=== PATIENT | female | born 1985 | race Caucasian/White ===

== ENCOUNTER 2016-12-24 12:52 | Emergency (ER) | payer MEDICAID ==
[~2016-12-24] VITALS: Ht 160 cm; Wt 87.0 kg
[2016-12-24] MEDS ORDERED: SODIUM CHLORIDE 0.9% 1,000 ML IV ONE (13:10)
[2016-12-24] MEDS ORDERED: SODIUM CHLORIDE FLUSH 10ML SYR IVF ONE (13:30)
[2016-12-24] MEDS ORDERED: KETOROLAC 30 MG/1 ML IVPush ONE (13:30)
[2016-12-24] MEDS ORDERED: SODIUM CHLORIDE 0.9% 1,000ML IVBOLUS ONE (13:30)
[2016-12-24] MEDS ORDERED: MORPHINE SULFATE 4 MG/ML, 1ML IVPush PRN (13:30)
[2016-12-24] MEDS ORDERED: ONDANSETRON 2MG/ML, 2ML IVPush ONE (13:30)
[2016-12-24] MEDS ORDERED: MORPHINE SULFATE 4 MG/ML, 1ML ONE (13:36)
[2016-12-24] MEDS ORDERED: KETOROLAC 30 MG/1 ML ONE (13:37)
[2016-12-24] MEDS ORDERED: ONDANSETRON 2MG/ML, 2ML ONE (13:37)
[2016-12-24 13:46] LABS: BLOOD UREA NITROGEN 8 mg/dL (7-18)
[2016-12-24 14:03] VITALS: BP 113/85
== END 2016-12-24 14:47 | disposition home or self-care (01) ==
LOC: ED 14:40
DX: R06.00 Dyspnea, unspecified (principal); G89.18 Other acute postprocedural pain; Z98.890 Other specified postprocedural states
CPT/HCPCS: 36415; 70360; 80048; 82040; 85025; 96361; 96374; 96375; 99285; J1885; J2405; J7030

== ENCOUNTER 2019-08-01 11:02 | Outpatient (CLI) | payer MEDICAID | END 2019-08-01 23:59 | disposition home or self-care (01) | LOC: RAD 11:02 | PROVIDERS: ATTEND Family Medicine | DX: M54.5 Low back pain (principal); M25.532 Pain in left wrist; M25.531 Pain in right wrist; R29.898 Other symptoms and signs involving the musculoskeletal system | CPT/HCPCS: 72072; 72110 ==